=== PATIENT | female | born 1985 | race Caucasian/White ===

== ENCOUNTER 2021-09-09 18:24 | Emergency (ER) | payer OTHER, SELFPAY ==
[2021-09-09 18:52] VITALS: BP 137/80; PULSE 81; RESP 19; TEMP 38.8; O2SAT 97
[2021-09-09] MEDS: ACETAMINOPHEN 500 MG TABLET 1000 MG PO (19:34)
--- NOTE | 2021-09-09 19:39 | PC.NURSE ---
pt reports having an allergy to darvocet, an acetaminophen allergy was added to pt's allergy list, pt states that she is not allergic to Tylenol. MD Salcido notified and cleared to give Tylenol as ordered. pt's allergy list updated.
[2021-09-09 20:05] LABS: Influenza A QL RT-PCR Negative (Negative); Influenza B QL RT-PCR Negative (Negative); SARS-CoV-2 RNA PCR Negative (Negative)
--- NOTE | 2021-09-09 20:10 | ED.FEVER ---
HPI - Fever General Chief Complaint: Fever Stated Complaint: throat pain,fever, nausea Source: patient Limitations: no limitations History of Present Illness HPI Narrative: this is a 35-year-old female that presents with fever to 101 with a nonproductive cough sore throat tender left submandibular gland with no shortness of breath no nausea vomiting no chest pain or pressure no diarrhea constipation or abdominal pain. Patient has been taking [id number] ibuprofen. MD elicited complaint: fever Relieving factors: acetaminophen and ibuprofen Associated symptoms: sore throat and cough Related Data Home Medications Medication Instructions Recorded Confirmed alprazolam 0.5 mg PO BID 09/09/21 09/09/21 Allergies Allergy/AdvReac Type Severity Reaction Status Date / Time diphenhydramine Allergy Itching Verified 09/09/21 19:33 [From Benadryl] propoxyphene Allergy Itching Verified 09/09/21 19:33 [From Darvocet-N] Review of Systems Review of Systems: All systems reviewed & are unremarkable except as noted in HPI and below PMFSH Past Medical History Medical History Patient denies medical problems Exam Const: General: no acute distress Orientation/consciousness: patient oriented x3 HENMT: Head: normal to inspection Other: throat with some erythema Eyes: Conjunctivae: conjunctivae normal Pupils: Equal, round and reactive pupils present EOM: EOMs intact bilaterally Direct Ophthalmoscopy: no photophobia Neck: Neck: normal visual inspection and lymphadenopathy Other: less tender submandibular gland Chest: Chest palpation & inspection: normal inspection of the chest Resp: Effort & Inspection: normal respiratory effort Auscultation: clear to auscultation bilaterally Cardio: Rate: regular rate Rhythm: regular rhythm GI: GI Palp: Yes Soft to palpation Percussion: Yes normal to percussion Urinary Catheter: Urinary Catheter: patent and draining Back/Spine/Pelvis: Back: no CVA tenderness Skin: General skin exam: normal color Rashes: no rashes Extrem: General: normal to inspection and no pedal edema Psych: Mental Status: mental status grossly normal Course PHOTO GRAPHICS LIBRARIAN/PA Physician Supervision COVID/influenza/ strep were reviewed with patient and are negative advised patient to continue Tylenol for fever or Motrin, salt water gargles and follow-up with primary care physician if symptoms persist. Vital Signs Vital signs: Vital Signs Temperature 38.8 C H 09/09/21 18:52 Pulse Rate 81 09/09/21 18:52 Respiratory Rate 19 09/09/21 18:52 Blood Pressure 137/80 09/09/21 18:52 Pulse Oximetry 97 09/09/21 18:52 Temperature 38.8 C H 09/09/21 18:52 Pulse Rate 81 09/09/21 18:52 Respiratory Rate 19 09/09/21 18:52 Blood Pressure 137/80 09/09/21 18:52 Pulse Oximetry 97 09/09/21 18:52 MDM - Fever Lab Data Labs: Lab Results 09/09/21 09/09/21 Range/Units 19:11 19:11 Influenza A (RT-PCR) Negative (Negative) Influenza B (RT-PCR) Negative (Negative) SARS-CoV-2 RNA (RT-PCR) Negative (Negative) Grp A Beta Strep Ag Negative Critical Care Time Critical Care Time Critical Care Time: No Discharge Plan Discharge Clinical Impression: Viral infection Patient Disposition: Home, Self-Care Condition: Stable Instructions: Antibiotic Form, Viral Syndrome (ED) Additional Instructions: Tylenol or Motrin for fever, drink plenty of fluids and follow-up with primary care physician if symptoms persist or worsen. Prescriptions: No Action alprazolam 0.5 mg Tablet 0.5 mg PO BID RF: 0 Follow-up/Referrals: Jami Jose MD [Primary Care Provider] - Time of Disposition: 20:13
[2021-09-09 20:28] VITALS: TEMP 36.8
[2021-09-09 20:32] VITALS: BP 117/76; PULSE 87; RESP 18; TEMP 36.8; O2SAT 98
== END 2021-09-09 20:34 | disposition home or self-care (01) ==
PROVIDERS: Emergency Provider Emergency Medicine; PCP Family Medicine
DX: B34.9 Viral infection, unspecified (principal); Z20.822 Contact with and (suspected) exposure to COVID-19
CPT/HCPCS: 87081; 87502; 87880; 99282; 99283; C9803; U0003; U0005

== ENCOUNTER 2022-01-21 09:35 | Emergency (ER) | payer OTHER, SELFPAY ==
--- NOTE | ~2022-01-21 | CT_ITS ---
EXAMINATION: CT brain wo con EXAM DATE: 01/21/2022 11:20 INDICATION: Dizziness, lightheadedness, chest heaviness. TECHNIQUE: Spiral CT of the head was performed without contrast. Axial, coronal and sagittal images were reviewed. The dose-length product (DLP) for this examination was 605.33 mGy-cm. The exposure w as tailored according to patient size, and iterative reconstruction (ASIR) was used as additional dos e reduction technique. There is no prior study for comparison. FINDINGS: There are several punctate regions of density in the inferior aspect of the right side of t he cerebellum indicated on images 15 and 16. Density could indicate calcification or possibly acute b lood, small cerebellar intraparenchymal hemorrhage. No evidence of adjacent edema. No acute ischemic infarction. No extra-axial collections or obstructive hydrocephalus. IMPRESSION: Several punctate foci of right cerebellar hyperdensity, differential diagnosis including small acute intraparenchymal hemorrhage and chronic dystrophic calcification or cavernoma. Follow-up brain MRI without and with contrast is recommended. Reviewed, dictated and finalized at location [facility]. NCIAL SERVICES SPECIALIST IMPRESSION: Several punctate foci of right cerebellar hyperdensity, differentia l diagnosis including small acute intraparenchymal hemorrhage and chronic dystr ophic calcification or cavernoma. Follow-up brain MRI without and with contrast is recommended.
--- NOTE | ~2022-01-21 | CT_ITS ---
EXAMINATION: CT diagnostic chest wo con DATE: 01/21/2022 12:26 INDICATION: Chest pain radiating to back. Chest heaviness. Dizziness for one day. Lightheadedness. TECHNIQUE: Computed tomography (CT) of the chest was performed without intravenous contrast. Automate d exposure control and iterative reconstruction technique were employed. Exam dose: 380.43 mGy-cm to roland exam DLP. COMPARISON: 01/2022 [facility] portable chest FINDINGS: No pulmonary infiltrate or consolidation or pulmonary mass lesion. Normal size and homogeneous density of the thyroid gland. No thoracic aortic aneurysm. Normal heart size. No pericardial or pleural effusion. No hilar or mediastinal mass lesion or lymphadenopathy. There are calcified left hilar and mediastina l lymph nodes consistent with old granulomatous disease. Approximately 2.1 x 2.7 cm left adrenal mass with relatively low-attenuation, likely an adrenal adeno ma if there is absence of any known malignancy. Small sliding hiatal hernia. IMPRESSION: No pulmonary infiltrate or consolidation or pulmonary mass lesion No thoracic aortic aneurysm Probable left adrenal adenoma Small sliding hiatal hernia Reviewed, dictated and finalized at [facility]. Reviewed, dictated and finalized at location [facility]. EL LATHE OPERATOR OUTSIDE
--- NOTE | ~2022-01-21 | XR_ITS ---
EXAMINATION: XR chest 1V portable DATE: 01/21/2022 11:20 INDICATION: Chest pain. Dizziness. TECHNIQUE: A single frontal view of the chest was obtained. COMPARISON: None. FINDINGS: The chest demonstrates clear lungs without pneumonia, pleural effusion, or pneumothorax. Th e heart size is normal. IMPRESSION: 1. No acute cardiopulmonary disease. Reviewed, dictated and finalized at location [facility]. RUMENT CHECKER
[2022-01-21 09:40] VITALS: BP 127/85; PULSE 90; RESP 20; TEMP 36.6; O2SAT 100
--- NOTE | 2022-01-21 09:49 | ECG_ITS ---
Measurements Intervals [place]sey Rate: 86 P: 18 MI: 147 QRS: 72 QRSD: 89 T: 55 QT: 342 QTc: 411 Interpretive Statements SINUS RHYTHM LOW QRS VOLTAGE IN PRECORDIAL LEADS [QRS DEFLECTION < 1.0 mV IN CHEST LEADS] BORDERLINE ECG NO PREVIOUS ECG AVAILABLE FOR COMPARISON Electronically Signed On 01-21-2022 10:20:18 QUALITY IMPROVEMENT COORDINATOR by Bubba Portillo M.D.
[2022-01-21] MEDS: LORazepam (*CRX) 0.5 MG TABLET 1 MG PO (10:08)
[2022-01-21] MEDS: SODIUM CHLORIDE 0.9% IV 1,000 ML 999 ML IV CONT (10:45)
[2022-01-21 11:03] LABS: Basophils Absolute Auto 0.06 K/mm3 (0.00-0.10); Basophils Percent Auto 0.7 % (0.0-1.0); Eosinophils Absolute Auto 0.09 K/mm3 (0.02-0.50); Eosinophils Percent Auto 1.1 % (1.0-6.0); Hematocrit 42.6 % (35.0-49.0); Hemoglobin 14.3 g/dL (12.0-15.0); Immature Granulocyte Absolute 0.02 K/mm3 (0.00-0.00); Immature Granulocyte Percent A 0.2 % (0.0-0.0); Lymphocytes Absolute Auto 2.43 K/mm3 (1.10-4.50); Lymphocytes Percent Auto 28.6 % (18.0-42.0); Mean Corpuscular HGB Conc 33.6 g/dL (32.0-36.0); Mean Corpuscular Hemoglobin 31.9 pg (27.0-31.0); Mean Corpuscular Volume 95.1 fL (78.0-102.0); Mean Platelet Volume 10.7 fl (9.2-11.8); Monocytes Absolute Auto 0.37 K/mm3 (0.10-0.90); Monocytes Percent Auto 4.4 % (2.0-11.0); Neutrophils Absolute Auto 5.5 K/mm3 (1.7-7.2); Platelet Count Result 255 K/mm3 (150-420); Red Blood Count 4.48 M/mm3 (4.20-5.40); Red Cell Distribution Width 12.5 % (11.6-14.4); White Blood Count 8.5 K/mm3 (4.8-10.8)
[2022-01-21 11:20] LABS: Alanine Aminotransferase 36 U/L (14-59); Albumin Level 3.8 g/dL (3.4-5.0); Alkaline Phosphatase 56 U/L (46-116); Anion Gap 11 mmol/L (8-16); Aspartate Amino Transferase 19 U/L (15-37); Bilirubin,Total 0.5 mg/dL (0.00-1.00); Blood Urea Nitrogen 10 mg/dL (7-18); Calcium 9.4 mg/dL (8.5-10.1); Carbon Dioxide 26 mmol/L (21-32); Chloride 105 mmol/L (98-108); Estimated CRCL calculation 86 ml/min; Estimated Glomerular Filt Rate > 60; Glucose 94 mg/dL (70-99); Osmolality Calculated 293 mOsm/kg (285-295); Potassium 4.3 mmol/L (3.5-5.1); Sodium 142 mmol/L (136-145); Total Protein 7.5 g/dL (6.4-8.2); Troponin I 6.8 ng/L (0.00-60.4)
[2022-01-21 11:21] LABS: Ethanol < 3 mg/dL (0-6); Lactic Acid Reflex 1.5 mmol/L (0.4-2.0)
[2022-01-21] MEDS: ASPIRIN 325 MG ENTERIC TABLET PO (11:30)
--- NOTE | 2022-01-21 12:24 | PC.NURSE ---
Neurology consult called to [facility] [place]'sDominick
[2022-01-21 12:45] LABS: Add Urine Microscopic? NO; Appearance Urine Clear (Clear); Bilirubin Urine Negative (Negative); Blood Urine Negative (Negative); Color Urine Light Yellow (Yellow); Glucose Urine UA Negative (Negative); Ketones Urine Negative (Negative); Leukocyte Esterase Ur Negative (Negative); Nitrate Urine Negative (Negative); Protein Urine Negative (Negative); Specific Grav Ur <= 1.005 (1.010-1.020); Urobilinogen Urine 0.2 mg/dL (0.2-1.0); pH Urine 5.5 (5.0-8.0)
[2022-01-21 12:53] LABS: Amphetamine Screen Urine Negative (Negative); Barbiturate Screen Urine Negative (Negative); Benzodiazepines Screen Urine Negative (Negative); Cannabinoid Screen Urine Negative (Negative); Cocaine Screen Urine Negative (Negative); Methadone Screen Urine Negative (Negative); Opiate Screen Urine Negative (Negative); Phencyclidine Screen Urine Negative (Negative)
--- NOTE | 2022-01-21 13:26 | ED.CHESTPAIN ---
HPI - Chest Pain General Chief Complaint: Chest Pain Stated Complaint: chest discomfort dizziness Time Seen by Provider: 01/21/22 09:38 Source: patient and RN notes reviewed Mode of arrival: ambulatory Limitations: no limitations History of Present Illness complaint: chest pain Onset (ago): hour(s) (2) Timing of current episode: episodic Prior episodes: Yes Onset: during rest Pain location: left chest Pain radiation: none Severity: moderate Pain scale (0-10): 3 Quality: tightness and heaviness Relieving factors: nothing Exacerbating factors: nothing Associated symptoms: other (increasing dizziness) Treatment prior to arrival: none Risk Factors Coronary artery disease risk factors: none Related Data On Oral Contraceptives: No Home Medications Medication Instructions Recorded Confirmed alprazolam 0.5 mg PO BID 09/09/21 01/21/22 fluoxetine 20 mg PO DAILY 01/21/22 01/21/22 Allergies Allergy/AdvReac Type Severity Reaction Status Date / Time diphenhydramine Allergy Itching Verified 01/21/22 09:50 [From Benadryl] propoxyphene Allergy Itching Verified 01/21/22 09:50 [From Darvocet-N] Review of Systems Review of Systems: All systems reviewed & are unremarkable except as noted in HPI and below PMFSH Past Medical History Medical History Chest pain due to psychological stress Dizziness Patient denies medical problems Exam Const: General: no acute distress and alert Nutritional Appearance: obese Orientation/consciousness: patient oriented x3 HENMT: Head: normal to inspection Ears: external ears normal, TM's normal bilaterally and EAC's normal General nose exam: Normal external nose present and Normal nares present Face and sinus: sinuses nontender Mouth: Yes lip normal and Yes moist mucous membranes Teeth and gingiva: dentition normal Eyes: Conjunctivae: conjunctivae normal Pupils: Equal, round and reactive pupils present EOM: EOMs intact bilaterally Neck: Neck: normal visual inspection and no lymphadenopathy Chest: Chest palpation & inspection: normal inspection of the chest Resp: Effort & Inspection: normal respiratory effort Auscultation: clear to auscultation bilaterally Cardio: Rate: regular rate Rhythm: regular rhythm GI: GI Palp: Yes Soft to palpation and No Tenderness to palpation present (GI) Auscultation: normal bowel sounds : General: Yes no CVA tenderness Speculum Exam - Vagina: normal vaginal discharge Back/Spine/Pelvis: Back: no CVA tenderness Skin: General skin exam: normal color Neuro: General: patient oriented x3, moves all extremities, no meningeal signs, no focal motor deficits and CN's II-XI intact bilaterally Extrem: General: normal to inspection and no pedal edema Psych: Appearance: grossly normal and well kempt Mental Status: mental status grossly normal Affect: Anxious affect present Thought content: Yes Normal thought content present Course Course Emergency Course: Pt was stable in the ED. less anxiety or dizziness. Reevaluation(s) Reevaluation #1: VSS Date: 01/22/22 Time: 10:32 Vital Signs Vital signs: Vital Signs Temperature 36.6 C 01/21/22 09:40 Pulse Rate 90 01/21/22 09:40 Respiratory Rate 20 01/21/22 09:40 Blood Pressure 127/85 01/21/22 09:40 Pulse Oximetry 100 01/21/22 09:40 Temperature 36.6 C 01/21/22 09:40 Pulse Rate 70 01/21/22 13:48 Respiratory Rate 16 01/21/22 13:48 Blood Pressure 123/75 01/21/22 13:48 Pulse Oximetry 100 01/21/22 13:48 MDM - Chest Pain Differential Diagnosis Differential diagnosis: Likely atypical chest pain Medical Records Data Attestation: I reviewed the patient's medical records. Lab Data Attestation: I reviewed the patient's lab results. Result diagrams: 01/21/22 10:53 01/21/22 10:53 Labs: Lab Results 01/21/22 01/21/22 01/21/22 Range/Units 10:53 10:53 10:53 WBC 8.5
[2022-01-21 13:48] VITALS: BP 123/75; PULSE 70; RESP 16; O2SAT 100
--- NOTE | 2022-01-21 14:25 | PC.NURSE ---
Report called to GREGORY Pike at [facility]. [facility] called to transport pt, but was told that they are out on a call so it will be a while before they are available to transport pt. Pt updated.
== END 2022-01-21 15:09 | disposition short-term general hospital (02) ==
PROVIDERS: Emergency Provider Emergency Medicine; PCP Family Medicine
DX: R07.89 Other chest pain (principal); I61.4 Nontraumatic intracerebral hemorrhage in cerebellum; R42 Dizziness and giddiness
CPT/HCPCS: 36415; 70450; 71045; 71250; 80053; 80307; 81003; 83605; 84484; 85025; 93005; 96360; 99285; A9270; J7030